=== PATIENT | male | born 1980 | race Caucasian/White ===

== ENCOUNTER 2016-11-08 23:11 | Emergency (ER) | payer SELFPAY ==
--- NOTE | 2016-11-08 23:42 | ED Physician Documentation ---
Sore Throat/Dental Pain - HISTORIAN Historian: patient - HPI Stated Complaint: Dental Pain Chief Complaint: Dental Pain Onset: days ago (2) Context: Dental Caries Associated Symptoms: denies: fever, chills Further Comments: yes (36 yo male presents with 2 day history of dental pain, unrelieved with Ibuprofen. has tried Orajel as well with no relief. Unable to get in to dentistry secondary to financial constraints.) - ROS CONST: no problems - PAST HX Past History: none Allergies/Adverse Reactions: Allergies Allergy/AdvReac Type Severity Reaction Status Date / Time No Known Allergies Allergy Verified 12/11/15 03:11 Home Medications: Ambulatory Orders Medication Instructions Recorded Amoxicillin [Amoxil] 500 mg PO TID #21 capsule 11/08/16 Hydrocodone/Acetaminophen [[place] 1 tab PO Q4H PRN #15 11/08/16 5-325 Tablet] - SOCIAL HX Smoking History: greater than 1 pack/day Alcohol Use: none - FAMILY HX Family History: No - VITAL SIGNS Vital Signs: Vital Signs Temp Pulse Resp BP Pulse Ox 98 F 86 18 128/64 96 11/08/16 23:15 11/08/16 23:15 11/08/16 23:15 11/08/16 23:15 11/08/16 23:15 - REVIEWED ASSESSMENTS Nursing Assessment Reviewed: Yes Vitals Reviewed: Yes Dental Pain Physical Exam - EXAM General Appearance: no acute distress, alert Head/Neck: head nml inspection, trachea midline, no lymphadenopathy Eyes: eyes nml inspection, PERRL Mouth/Throat: lips nml, pharynx nml, voice nml, dental tenderness, gum swelling around teeth, widespread dental decay Ear/Nose: nml inspection Skin: warm/dry Neuro/Psych: No: weakness Discharge Clincal Impression: Dental caries Additional Instructions: Take Amoxil 500mg three times a day for 7 days Take [place] as Rx for pain Follow up with dentist from list provided for definitive dental half-way Medications: Ambulatory Orders Amoxicillin [Amoxil] 500 mg PO TID #21 capsule 11/08/16 Hydrocodone/Acetaminophen [[place] 5-325 Tablet] 1 tab PO Q4H PRN #15 11/08/16 Disposition: 01 HOME, SELF-CARE Decision to Admit: NO Decision Time: 23:42
[2016-11-08] MEDS ORDERED: HYDROcodone /APAP 5/325 1 EACH TABLET PO ONE ×2 (23:44)
[2016-11-08] MEDS ORDERED: AMOXICILLIN 500 MG CAPSULE PO ONE (23:44)
[2016-11-08 23:52] VITALS: BP 120/58
== END 2016-11-08 23:50 | disposition home or self-care (01) ==
LOC: ED 23:11
DX: K02.9 Dental caries, unspecified (principal)
CPT/HCPCS: 99282

== ENCOUNTER 2017-03-12 20:53 | Emergency (ER) | payer SELFPAY ==
[2017-03-12 21:07] VITALS: BP 137/77
[2017-03-12] MEDS ORDERED: HYDROcodone /APAP 10/325 1 EACH TABLET PO ONE (21:26)
[2017-03-12] MEDS ORDERED: SULFAMETHOXAZOLE/TRIMETHOPRIM 1 EACH TABLET PO ONE (21:29)
--- NOTE | 2017-03-12 21:39 | ED Physician Documentation ---
General Adult - HISTORIAN Historian: patient, spouse - HPI Stated Complaint: ABSCES Chief Complaint: Abscess Additional Information: facial abscess corner rt mouth-has had prev mrsa Onset: days ago (3) Timing: worse Severity: moderate - ROS CONST: no problems EYES/ENT: none CVS/RESP: none GI/: none MS/SKIN/LYMPH: none - PAST HX Past History: other (prev mrsa abscesses) Surgeries/Procedures: none Allergies/Adverse Reactions: Allergies Allergy/AdvReac Type Severity Reaction Status Date / Time No Known Allergies Allergy Verified 03/12/17 21:08 Home Medications: Ambulatory Orders Medication Instructions Recorded NK [NK] 03/12/17 - SOCIAL HX Smoking History: greater than 1 pack/day Alcohol Use: none Drug Use: none - FAMILY HX Family History: No - VITAL SIGNS Vital Signs: Vital Signs Temp Pulse Resp BP Pulse Ox 98.4 F 95 H 22 137/77 98 03/12/17 21:02 03/12/17 21:02 03/12/17 21:02 03/12/17 21:02 03/12/17 21:02 - REVIEWED ASSESSMENTS Nursing Assessment Reviewed: Yes Vitals Reviewed: Yes ED Results Lab/Radiology - Orders Orders: ED Orders Category Date Time Status HYDROcodone /APAP 10/325 [[place] 10/325] Med 03/12/17 21:26 Once 1 each PO NOW ONE HYDROcodone /APAP 5/325 [[place] 5/325] Med 03/13/17 00:00 Ordered 1 each PO Q6 Sulfamethoxazole/Trimethoprim [Bactrim Ds] Med 03/12/17 21:29 Once 3 each PO NOW ONE General Adult Physical Exam - PHYSICAL EXAM GENERAL APPEARANCE: moderate distress EENT: eye inspection normal NECK: normal inspection, thyroid normal, meningismus RESPIRATORY: no resp distress, chest non-tender CVS: reg rate & rhythm, heart sounds normal ABDOMEN: soft, non-tender BACK: normal inspection SKIN: warm/dry, normal color, other (1 1/2 abscess rt corner mouth onset 3 days - prev mrsa abscess) EXTREMITIES: non-tender, normal range of motion NEURO: oriented X3, motor nml, sensation nml, mood/affect nml Discharge Clincal Impression: abscess rt corner mouth-MRSA, PREV MRSA ABSCESSES Referrals: Primary Doctor,No [Primary Care Provider] - 2 Days Home Medications: Ambulatory Orders NK [NK] 03/12/17 Comments: WILL SEND [place] [facility] [place] Condition: Fair Disposition: 01 HOME, SELF-CARE Decision to Admit: NO Decision Time: 21:39
[2017-03-12] MEDS ORDERED: HYDROcodone /APAP 5/325 1 EACH TABLET PO ONE (21:48)
[2017-03-13] MEDS ORDERED: HYDROcodone /APAP 5/325 1 EACH TABLET PO SCH
== END 2017-03-12 21:52 | disposition home or self-care (01) ==
LOC: ED 20:53
DX: K12.2 Cellulitis and abscess of mouth (principal)
CPT/HCPCS: A9270 ×2; 99283